=== PATIENT | female | born 1950 | race Caucasian/White ===

== ENCOUNTER → 2017-11-02 | Outpatient (CLI) | payer OTHER ==
[~2017-11-02] MED LIST: Estradiol1 MG
== END ==
LOC: LAB SHORT 10:15
DX: B00.9 Herpesviral infection, unspecified (principal)
CPT/HCPCS: 87070; 87205

== ENCOUNTER 2017-11-04 08:37 | Emergency (ER) | payer OTHER ==
[~2017-11-04] VITALS: Ht 175.3 cm; Wt 59.0 kg
[2017-11-04] MEDS ORDERED: Estradiol1 MG (08:57)
== END 2017-11-04 09:41 | disposition home or self-care (01) ==
LOC: ER 08:37
DX: L01.00 Impetigo, unspecified (principal); Z88.0 Allergy status to penicillin
CPT/HCPCS: 99282

== ENCOUNTER → 2020-08-13 | Outpatient (CLI) | payer OTHER ==
[2020-08-15 20:37] LABS: CORONAVIRUS (COVID19) CSH-NRL Negative (Negative)
== END | disposition home or self-care (01) ==
LOC: LAB 16:13 → LAB SHORT 16:13
PROVIDERS: Physician Assistant
DX: B34.9 Viral infection, unspecified (principal); Z20.828 Contact with and (suspected) exposure to other viral communicable diseases
CPT/HCPCS: U0003

== ENCOUNTER 2021-06-04 11:31 | Day surgery (SDC) | payer OTHER ==
[~2021-06-04] VITALS: Ht 175.3 cm; Wt 58.0 kg
[~2021-06-04 11:31] MED LIST changes: +Estrace Vagin42.5 GM TOP; +MULVITA PO
--- NOTE | 2021-06-04 11:51 | NUR ---
History, Chart, Medications and Allergies reviewed before start of procedure. Patient confirms NPO status and agrees with scheduled surgery.
--- NOTE | 2021-06-04 12:10 | NUR ---
Patient States Post-Procedure ride home has been arranged with her .
--- NOTE | 2021-06-04 15:25 | NUR ---
Patient up to Ambulate independently. Gait steady. Discharge instructions reviewed with patient. Patient verbalizes understanding. Copy given to patient to take home. Patient States Post-Procedure ride home has been arranged WITH . Discharged via wheelchair to private car for ride home.
--- NOTE | 2021-06-10 13:52 | NUR ---
06/10/21 1352 Jenna Everett VERIFICATIONS: EDIT CHART.
== END 2021-06-04 23:32 | disposition home or self-care (01) ==
LOC: ORSCMMR 11:31
PROVIDERS: Podiatrist Foot & Ankle Surgery
PROC: 0QSQ04Z Reposition Right Toe Phalanx with Internal Fixation Device, Open Approach (ICD-10-PCS; principal; 2021-06-04 13:15)
DX: S92.911A Unspecified fracture of right toe(s), initial encounter for closed fracture (principal); Z87.891 Personal history of nicotine dependence; Z79.899 Other long term (current) drug therapy
CPT/HCPCS: C1769; J0171; J1100; J2001; J2405; J2704; J3010; J7120

== ENCOUNTER 2022-12-25 15:51 | Emergency (ER) | payer OTHER ==
[~2022-12-25] VITALS: Ht 172.7 cm; Wt 61.2 kg
[2022-12-25 16:30] LABS: BASOPHILS ABSOLUTE AUTO 0.08 K/mm3 (0.00-0.23); BASOPHILS PERCENT AUTO 1 % (0-2); EOSINOPHILS ABSOLUTE AUTO 1.46 K/mm3 (0.00-0.68); EOSINOPHILS PERCENT AUTO 24 % (0-6); Hematocrit 37.1 % (33.0-51.0); Hemoglobin 12.9 g/dL (11.5-16.0); IMMATURE GRAN PERCENT AUTO 0 % (0-1); LYMPHOCYTES ABSOLUTE AUTO 1.38 K/mm3 (0.84-5.20); LYMPHOCYTES PERCENT AUTO 22 % (21-46); MONOCYTES ABSOLUTE AUTO 0.59 K/mm3 (0.16-1.47); MONOCYTES PERCENT AUTO 10 % (4-13); Mean Corpuscular HGB 32.4 pg (26.0-34.0); Mean Corpuscular HGB Conc 34.8 g/dL (31.5-36.5); Mean Corpuscular Volume 93 fL (80-100); Mean Platelet Volume 9.8 fL (9.1-12.4); NEUTROPHILS ABSOLUTE AUTO 2.65 K/mm3 (1.96-9.15); NEUTROPHILS PERCENT AUTO 43 % (41-73); Platelet Count 278 K/mm3 (150-400); RDW Standard Deviation 41.5 fL (35.1-46.3); Red Blood Cell Count 3.98 M/mm3 (3.80-5.20); White Blood Cell Count 6.16 K/mm3 (4.00-11.30)
[2022-12-25 16:49] LABS: Albumin, Blood 4.1 g/dL (3.4-5.0); Albumin/Globulin Ratio 1.1 (0.8-1.8); Bilirubin, Total 0.6 mg/dL (0.1-1.0); Bun/Creatinine Ratio 22.9 (12.0-20.0); Creatinine, Blood 0.53 mg/dL (0.40-1.00); Globulin, Blood 3.9 g/dL (2.2-4.0); Potassium, Blood 3.6 mmol/L (3.5-5.5)
== END 2022-12-25 20:31 | disposition home or self-care (01) ==
LOC: ER 15:51
PROVIDERS: Physician Assistant
DX: R55 Syncope and collapse (principal); Z88.0 Allergy status to penicillin; Z79.899 Other long term (current) drug therapy
CPT/HCPCS: 36415; 71046; 80053; 84484; 85025; 93005; 93010

== ENCOUNTER → 2024-04-17 | Outpatient (CLI) | payer OTHER ==
[2024-04-17 18:47] LABS: Free Thyroxine 0.59 ng/dL (0.70-1.60); Thyroid Stimulating Hormone 1.31 uIU/mL (0.360-4.800); Triiodothyronine, Free 2.01 pg/mL (2.18-3.98)
== END ==
LOC: LAB 15:57 → LAB SHORT 15:57
PROVIDERS: Nurse Practitioner Family
DX: E03.9 Hypothyroidism, unspecified (principal)
CPT/HCPCS: 84439; 84443; 84481